=== PATIENT | female | born 1965 | race American Indian/Alaskan Native ===

== ENCOUNTER 2017-02-22 18:02 | Emergency (ER) | payer OTHER ==
[2017-02-22 20:05] LABS: Hematocrit 40.6 % (30.3-42.9); Hemoglobin 14.1 gm/dl (10.1-14.3); Mean Corpuscular HGB Conc 35 % (30-34); Mean Corpuscular Hemoglobin 32 pg (28-32); Mean Corpuscular Volume 91 fl (79-97); Platelet Count 309 K/mm3 (140-440); Red Blood Count 4.48 M/mm3 (3.65-5.03); Red Cell Distribution Width 13.7 % (13.2-15.2); White Blood Count 11.5 K/mm3 (4.5-11.0)
[2017-02-22] MEDS ORDERED: MORPHINE IV ONE (20:06)
[2017-02-22 20:27] LABS: Alanine Aminotransferase 13 units/L (7-56); Albumin 3.9 g/dL (3.9-5); Alkaline Phosphatase 108 units/L (35-129); Anion Gap 20 mmol/L; BUN/Creatinine Ratio 17; Blood Urea Nitrogen 12 mg/dL (7-17); Calcium 9.5 mg/dL (8.4-10.2); Carbon Dioxide 28 mmol/L (22-30); Chloride 86.4 mmol/L (98-107); Glucose 204 mg/dL (65-100); Lipase 12 units/L (13-60); Sodium 132 mmol/L (137-145); Total Protein 7.8 g/dL (6.3-8.2)
[2017-02-22 20:39] LABS: Potassium 2.9 mmol/L (3.6-5.0)
[2017-02-22] MEDS ORDERED: K-DUR PO ONE (20:39)
[2017-02-22] MEDS ORDERED: KCL 10MEQ/100ML 10 MEQ/100 ML BAG IV ONE (20:39)
[2017-02-22 20:56] LABS: Basophils % (Manual) 0 % (0.0-1.8); Blastocytes % (Manual) 0 %; Eosinophils % (Manual) 0 % (0.0-4.3)
[2017-02-22 20:57] LABS: Diff Status Complete; RBC Morphology Normal
[2017-02-22 21:20] LABS: Bacteria,Urine 1+ /HPF (Negative); Bilirubin,Urine NEG (Negative); Blood,Urine LG (Negative); Ketones,Urine 20 mg/dL (Negative); Leukocyte Esterase,Urine MOD (Negative); Mucus,Urine FEW /HPF; Nitrite,Urine NEG (Negative); Urobilinogen,Urine < 2.0 mg/dL (<2.0)
[2017-02-22] MEDS ORDERED: NACL 0.9% 500 ML 500 ML ONE (21:20)
--- NOTE | 2017-02-22 22:08 | Cat Scan Report ---
FINAL REPORT PROCEDURE: CT ABDOMEN PELVIS W CON TECHNIQUE: Computerized axial tomography of the abdomen and pelvis was performed after the IV injection of iodinated nonionic contrast. HISTORY: abdominal pain COMPARISON: No prior studies are available for comparison. FINDINGS: Visualized lower thorax: No significant abnormality. Liver: The liver measures 21 centimeters craniocaudal. Spleen: Normal size and attenuation. Gallbladder and biliary system: There has been cholecystectomy. There is diffuse biliary ductal dilatation which is likely related to prior cholecystectomy. Pancreas: Normal. Adrenals: Normal. Kidneys: Normal. GI tract: The appendix is visualized and does not appear inflamed. No bowel obstruction or acute inflammation is seen. Lymph nodes and mesentery: Normal. Vasculature: There is aortic calcification. Bladder: Normal. Reproductive organs: Calcified fibroids are present. Peritoneum: No free fluid. Musculoskeletal structures: No significant abnormality. Other: None. IMPRESSION: No acute inflammatory process is seen. No bowel obstruction
[2017-02-23] MEDS ORDERED: DEMEROL IV PRN (01:32)
--- NOTE | 2017-02-23 02:07 | Emergency Department Report ---
ED Abdominal Pain HPI - General Chief Complaint: Abdominal Pain Stated Complaint: LUIZ/NAUSEA/VOMITING Time Seen by Provider: 02/22/17 19:55 Source: patient, EMS Mode of arrival: Stretcher Limitations: No Limitations - History of Present Illness Initial Comments: Patient reports abdominal pain and diarrhea for 2 days with 4 bouts in the last 24 hours. Also had a fever up to 100.9. Has h/o HTN and DM type I. MD Complaint: abdominal pain -: days(s) (2) Location: diffuse Radiation: none Migration to: no migration Severity: moderate Severity scale (0 -10): 4 Quality: cramping, sharp Consistency: constant, intermittent Improves With: nothing Worsens With: eating Associated Symptoms: nausea, vomiting - Related Data Previous Rx's Medication Instructions Recorded Last Taken Type Potassium Chloride 10 meq PO DAILY #15 tablet.er 02/23/17 Unknown Rx oxyCODONE /ACETAMINOPHEN [Percocet 1 tab PO Q6HR PRN #10 tablet 02/23/17 Unknown Rx 5/325] Allergies Allergy/AdvReac Type Severity Reaction Status Date / Time lisinopril Allergy Anaphylaxis Verified 02/22/17 18:26 ED Review of Systems ROS: Stated complaint: LUIZ/NAUSEA/VOMITING Other details as noted in HPI Constitutional: chills, fever Eyes: denies: eye pain, eye discharge, vision change ENT: denies: ear pain, throat pain Respiratory: denies: cough, shortness of breath, wheezing Cardiovascular: denies: chest pain, palpitations Endocrine: no symptoms reported Gastrointestinal: abdominal pain, nausea, diarrhea Genitourinary: denies: urgency, dysuria, discharge Musculoskeletal: denies: back pain, joint swelling, arthralgia Skin: denies: rash, lesions Neurological: denies: headache, weakness, paresthesias Psychiatric: denies: anxiety, depression Hematological/Lymphatic: denies: easy bleeding, easy bruising ED Past Medical Hx - Past Medical History Previous Medical History?: Yes Hx Hypertension: Yes Hx Diabetes: Yes Additional medical history: pancreatitis - Surgical History Past Surgical History?: Yes Hx Cholecystectomy: Yes - Social History Smoking Status: Never Smoker - Medications Home Medications: Home Medications Medication Instructions Recorded Confirmed Last Taken Type Potassium Chloride 10 meq PO DAILY #15 tablet.er 02/23/17 Unknown Rx oxyCODONE /ACETAMINOPHEN [Percocet 1 tab PO Q6HR PRN #10 tablet 02/23/17 Unknown Rx 5/325] ED Physical Exam - General Limitations: No Limitations General appearance: alert, in no apparent distress - Head Head exam: Present: atraumatic, normocephalic - Eye Eye exam: Present: normal appearance - ENT ENT exam: Present: mucous membranes moist - Neck Neck exam: Present: normal inspection - Respiratory Respiratory exam: Present: normal lung sounds bilaterally. Absent: respiratory distress - Cardiovascular Cardiovascular Exam: Present: regular rate, normal rhythm. Absent: systolic murmur, diastolic murmur, rubs, gallop - GI/Abdominal GI/Abdominal exam: Present: soft, tenderness (TTP generalized but no peritonitis ), normal bowel sounds - Extremities Exam Extremities exam: Present: normal inspection - Back Exam Back exam: Present: normal inspection - Neurological Exam Neurological exam: Present: alert, oriented X3 - Psychiatric Psychiatric exam: Present: normal affect, normal mood - Skin Skin exam: Present: warm, dry, intact, normal color. Absent: rash ED Course Vital Signs 02/22/17 02/22/17 02/22/17 18:30 18:43 18:45 Temperature 98.0 F Pulse Rate 99 H 98 H Respiratory 22 23 Rate Blood Pressure 171/95 Blood Pressure 169/95 [Right] O2 Sat by Pulse 100 98 Oximetry 02/22/17 02/22/17 02/22/17 19:00 19:15 19:30 Temperature Pulse Rate 93 H 100 H 105 H Respiratory 16 13 28 H Rate Blood Pressure 197/105 201/108 183/109 Blood Pressure [Right] O2 Sat by Pulse 97 99 84 Oximetry 02/22/17 02/22/17 02/22/17 19:45 20:00 20:25 Temperature Pulse Rate 107 H 104 H 112 H Respiratory 32 H 31 H Rate Blood Pressure 175/102 183/92 183/92 Blood Pressure [Right] O2 Sat by Pulse 100 100 Oximetry 02/22/17 02/22/17 02/22/17 20:31 20:45 21:41 Temperature Pulse Rate 106 H 102 H Respiratory 25 H 22 17 Rate Blood Pressure 192/102 183/92 180/108 Blood Pressure [Right] O2 Sat by Pulse 97 100 84 Oximetry 02/22/17 02/22/17 02/22/17 21:45 22:00 22:15 Temperature Pulse Rate 101 H 101 H 105 H Respiratory 19 25 H 40 H Rate Blood Pressure 180/108 177/99 177/99 Blood Pressure [Right] O2 Sat by Pulse 100 97 100 Oximetry 02/22/17 02/22/17 02/22/17 22:31 22:45 22:55 Temperature Pulse Rate 100 H 102 H 100 H Respiratory 25 H 24 20 Rate Blood Pressure 166/101 167/91 167/91 Blood Pressure [Right] O2 Sat by Pulse 100 100 97 Oximetry 02/22/17 02/22/17 02/22/17 23:00 23:15 23:31 Temperature Pulse Rate 101 H 96 H 101 H Respiratory 29 H 19 23 Rate Blood Pressure 180/101 180/101 178/108 Blood Pressure [Right] O2 Sat by Pulse 83 L 100 Oximetry 02/22/17 02/23/17 02/23/17 23:45 00:00 00:15 Temperature Pulse Rate 102 H 101 H 98 H Respiratory 22 13 16 Rate Blood Pressure 175/94 168/98 168/98 Blood Pressure [Right] O2 Sat by Pulse 100 83 L 89 Oximetry 02/23/17 02/23/17 02/23/17 00:31 00:45 01:00 Temperature Pulse Rate 103 H 101 H 99 H Respiratory 35 H 16 15 Rate Blood Pressure 172/98 177/97 176/114 Blood Pressure [Right] O2 Sat by Pulse 100 99 100 Oximetry 02/23/17 02/23/17 02/23/17 01:15 01:31 01:47 Temperature 98.5 F Pulse Rate 97 H 104 H Respiratory 15 20 Rate Blood Pressure 177/97 202/105 Blood Pressure [Right] O2 Sat by Pulse 100 99 Oximetry ED Medical Decision Making - Lab Data Result diagrams: 02/22/17 19:13 02/22/17 23:35 Mild elevated WBC but very low potassium C/W gastroenteritis. - EKG Data EKG shows normal: sinus rhythm, axis, intervals, QRS complexes, ST-T waves Rate: normal - EKG Data Interpretation: normal EKG - Radiology Data Radiology results: report reviewed No acute inflamatory process. - Medical Decision Making Patient with hypokalemia that did improve slightly after treatment. Will give potassium chloride to take orally and encourage bananas. Her BP improved with pain meds and she has been unable to take her meds lately. Patient BP was elevated as she is in pain and likely not absorbing her BP meds appropriately. She was informed that she did not currently have pancreatitis. Critical care attestation.: If time is entered above; I have spent that time in minutes in the direct care of this critically ill patient, excluding procedure time. ED Disposition Clinical Impression: Hypokalemia, Viral gastroenteritis Diarrhea Qualifiers: Diarrhea type: infectious Qualified Code(s): A09 - Infectious gastroenteritis and colitis, unspecified Abdominal pain Qualifiers: Abdominal location: generalized Qualified Code(s): R10.84 - Generalized abdominal pain Hypertension Qualifiers: Hypertension type: essential hypertension Qualified Code(s): I10 - Essential ( primary) hypertension Disposition: TO HOME OR SELFCARE Is pt being admited?: No Does the pt Need Aspirin: No Condition: Stable Instructions: Abdominal Pain (ED), Hypertension (ED) Prescriptions: oxyCODONE /ACETAMINOPHEN [Percocet 5/325] 1 tab PO Q6HR PRN #10 tablet PRN Reason: Pain Potassium Chloride 10 meq PO DAILY #15 tablet.er Referrals: CADE MAGDALENO MD [Staff Physician] - 3-5 Days Time of Disposition: 02:16
[2017-02-23 03:36] VITALS: BP 164/95
== END 2017-02-23 03:48 | disposition home or self-care (01) ==
LOC: ED 18:02
DX: A09 Infectious gastroenteritis and colitis, unspecified (principal); I10 Essential (primary) hypertension; R10.84 Generalized abdominal pain; E87.6 Hypokalemia; E11.9 Type 2 diabetes mellitus without complications; K85.90 Acute pancreatitis without necrosis or infection, unspecified; Z90.49 Acquired absence of other specified parts of digestive tract; Z88.8 Allergy status to other drugs, medicaments and biological substances
CPT/HCPCS: 36415; 74177; 80053; 81001; 83690; 84132; 85007; 85025; 93005; 93010; 96361; 96374; 96375; 99284; J2175; J2270; J3480; J7040; Q9967